=== PATIENT | female | born 1980 | race Hispanic/Latino ===

== ENCOUNTER 2023-08-24 08:39 | Day surgery (SDC) | payer OTHER ==
[2023-08-24] MEDS ORDERED: Acetaminophen 500 MG TAB ONE (08:47)
[2023-08-24] MEDS ORDERED: Acetaminophen 500 MG TAB PO SCH (09:00)
[2023-08-24] MEDS ORDERED: Iron Sucrose Complex 500 MG in Sodium Chloride 0.9% 250 ML 250 ML IVPB SCH (09:00)
== END 2023-08-24 14:20 | disposition home or self-care (01) ==
LOC: CSHSDC 08:39
PROVIDERS: ATTEND Obstetrics & Gynecology
DX: K90.9 Intestinal malabsorption, unspecified (principal)
CPT/HCPCS: 96365; 96366; J1756; J7050

== ENCOUNTER 2025-02-25 11:17 | Outpatient (CLI) | payer OTHER ==
[2025-02-25 12:22] LABS: BHCG - Serum Negative (NEGATIVE); Pregs Control Background? CLEAR/WHITE (CLR/WHITE); Pregs Control Bar Appear? YES (CONTROL BAR)
== END 2025-02-25 11:18 | disposition home or self-care (01) ==
LOC: CSHLAB 11:17
PROVIDERS: ATTEND Surgery
DX: Z01.812 Encounter for preprocedural laboratory examination (principal); Z80.0 Family history of malignant neoplasm of digestive organs; K28.3 Acute gastrojejunal ulcer without hemorrhage or perforation
CPT/HCPCS: 84703

== ENCOUNTER 2025-03-04 11:01 | Day surgery (SDC) | payer OTHER ==
[2025-02-25 11:31] VITALS: BMI 40.2
[2025-03-04] MEDS ORDERED: PROPOFOL 0 ML ONE (13:22)
[2025-03-04] MEDS ORDERED: PROPOFOL 20 ML ONE (13:34)
[2025-03-04] MEDS ORDERED: Lidocaine 1% PF 5 ML VIAL ONE (13:49)
== END 2025-03-04 14:50 | disposition home or self-care (01) ==
LOC: CSHSDC 11:01
PROVIDERS: ATTEND Surgery
PROC: 0DB68ZX Excision of Stomach, Via Natural or Artificial Opening Endoscopic, Diagnostic (ICD-10-PCS; principal; 2025-03-04)
PROC: 0DB38ZX Excision of Lower Esophagus, Via Natural or Artificial Opening Endoscopic, Diagnostic (ICD-10-PCS; principal; 2025-03-04)
DX: K31.9 Disease of stomach and duodenum, unspecified (principal); K22.10 Ulcer of esophagus without bleeding; K28.3 Acute gastrojejunal ulcer without hemorrhage or perforation; K22.82 Esophagogastric junction polyp; K29.70 Gastritis, unspecified, without bleeding; I51.89 Other ill-defined heart diseases; E55.9 Vitamin D deficiency, unspecified; D50.9 Iron deficiency anemia, unspecified; E66.01 Morbid (severe) obesity due to excess calories; Z68.41 Body mass index [BMI] 40.0-44.9, adult; Z98.84 Bariatric surgery status; Z79.899 Other long term (current) drug therapy
CPT/HCPCS: 88305; 88342; J2250; J2704